=== PATIENT | male | born 1975 | race Asian ===

== ENCOUNTER 2019-02-26 08:06 | Outpatient (CLI) | payer OTHER ==
[2019-02-26] MEDS ORDERED: GADOBUTROL 10 MMOL/10 ML VIAL ONE (08:16)
[2019-02-26] MEDS ORDERED: GADOBUTROL 10 MMOL/10 ML VIAL IVP ONE (09:15)
--- NOTE | 2019-02-26 15:33 | MRI Report ---
Reason: NERVE ROOT AND PLEXUS DISORDER, UNSPECIFIED, LOW B Procedure Date: 02/26/2019 Accession Number: [id number] / [id number] Procedure: MRI - Lumbar Spine W/WO CPT Code: FULL RESULT: EXAM: MRI LUMBAR SPINE WITHOUT AND WITH CONTRAST EXAM DATE: 02/26/2019 09:39 AM. CLINICAL HISTORY: Nerve root and plexus disorder. Back pain. COMPARISONS: None. TECHNIQUE: Multiplanar, multisequence T1-weighted and fluid-sensitive sequences of the lumbar spine from T12 to S1 before and after administration of intravenous contrast. Other: None. IV contrast: 10 mL Gadavist given IV, no reaction. FINDINGS: Neurologic Structures: The conus terminates at L1. The conus medullaris and cauda equina are unremarkable. Alignment: No scoliosis or spondylolisthesis. Bone Marrow: Five [id number] lumbar vertebral bodies are assumed. Some endplate sclerosis seen at L4-L5 and L5-S1. Postoperative changes with interbody spacers also seen at this location. Bilateral pedicle screws at L4, L5, and S1. Disk Levels/Facets: T12-L1: Unremarkable. L1-L2: Unremarkable. L2-L3: Unremarkable. L3-L4: Normal disk, very prominent facets. Pedicle screws at L4. Mild central stenosis. Mild bilateral foraminal stenosis. L4-L5: Postoperative changes at this level, dorsal decompression procedure. No central stenosis. On the left side, there is a left lateral disk extrusion which does not show enhancement, with undersurface deformity and effacement of the left exiting L4 root. Series 801 image 3. This is about 8 x 4 mm in the neural foramina. L5-S1: Surgery at this level. Pedicle screws. Dorsal decompression procedure. No central stenosis. No foraminal narrowing. Spinal Canal: No enhancing masses within the spinal canal. No epidural abscess. Musculature: Postoperative changes, mild fatty atrophy of the multifidus muscle is seen. Other: The visualized retroperitoneum is unremarkable. IMPRESSION: 1. Conus terminates at L1 which is normal. No abnormal cord signal or enhancement. No scoliosis or listhesis. 2. Postoperative changes with bilateral pedicle screws at L4, L5 and S1 with interbody spacers at L4-L5 and L5-S1. Endplate sclerosis also seen at these levels. 3. L3-L4 shows a normal disk, mild central stenosis and mild bilateral foraminal stenosis. 4. L4-L5 shows surgical changes at this level, far left lateral disk extrusion creates effacement of the exiting undersurface left L4 root. 5. L5-S1 shows surgery at this level and pedicle screws also present. Dorsal decompression procedure. No central or foraminal stenosis. Comment: The following findings are so common in adults without low back pain that while we report their presence, they must be interpreted with caution and in the context of the clinical situation. (Reference Clayk et al, Spine 2001) Prevalence of findings in patients without low back pain: Disk degeneration (any evidence): 92% Disk desiccation/T2 signal loss: 83% Disk height loss: 56% Disk bulge: 64% Disk protrusion: 32% Annular tear/high intensity zone: 38% RADIA
== END 2019-02-26 08:07 | disposition home or self-care (01) ==
LOC: DI 08:06
PROVIDERS: ATTEND General Practice
DX: M51.26 Other intervertebral disc displacement, lumbar region (principal); M48.061 Spinal stenosis, lumbar region without neurogenic claudication
CPT/HCPCS: 72158; A9585